=== PATIENT | female | born 1965 | race American Indian/Alaskan Native ===

== ENCOUNTER 2018-01-13 06:27 | Day surgery (SDC) | payer OTHER ==
[~2018-01-13 06:27] MED LIST: ANCEF/STERILE WATER 2 GM/20 ML IV NR
[2018-01-13] MEDS ORDERED: XYLOCAINE 1% 20 mL ONE (06:41)
[2018-01-13] MEDS ORDERED: ADRENALIN IV ONE ×2 (06:41→07:58)
[2018-01-13] MEDS ORDERED: MARCAINE 0.25% INFILTRATI ONE ×2 (06:41→07:50)
--- NOTE | 2018-01-13 07:02 | Anesthesia Day of Surgery ---
Anesthesia Day of Surgery - Day of Surgery Patient Examined: Yes Patient H&P Reviewed: Yes Patient is NPO: Yes
--- NOTE | 2018-01-13 07:03 | Anesthesia Consultation ---
Anesthesia Consult and Med Hx Date of service: 01/13/18 - Airway Anesthetic Teeth Evaluation: Good ROM Head & Neck: Adequate Mental/Hyoid Distance: Adequate Mallampati Class: Class III Intubation Access Assessment: Possibly Difficult - Pulmonary Exam CTA: Yes - Cardiac Exam Cardiac Exam: RRR - Pre-Operative Health Status ASA Pre-Surgery Classification: ASA2 Proposed Anesthetic Plan: General - Pulmonary Hx Smoking: No Hx Sleep Apnea: No (ANGIE PRE SCREEN LOW RISK.) - Cardiovascular System Hx Hypertension: No - Central Nervous System Hx Back Pain: Yes - Endocrine Hx Hypothyroidism: Yes (ON DAILY MEDS) - Other Systems Hx Cancer: No
[2018-01-13] MEDS ORDERED: XYLOCAINE MPF 2% ONE (07:29)
[2018-01-13] MEDS ORDERED: DIPRIVAN 10 MG/ML IV ONE (07:29)
[2018-01-13] MEDS ORDERED: SUBLIMAZE ONE (07:29)
[2018-01-13] MEDS ORDERED: XYLOCAINE 1% 20 mL INFILTRATI ONE (07:50)
[2018-01-13] MEDS ORDERED: QUELICIN ONE ×2 (07:50→08:30)
[2018-01-13] MEDS ORDERED: VERSED IV NR (08:00)
[2018-01-13] MEDS ORDERED: LACTATED RINGERS 1,000 ML IV SCH (08:00)
[2018-01-13] MEDS ORDERED: ZOFRAN ONE (08:25)
[2018-01-13] MEDS ORDERED: DECADRON ONE (08:25)
--- NOTE | 2018-01-13 08:43 | Short Stay Summary ---
Short Stay Documentation Date of service: 01/13/18 - History H&P: obtained from office - Allergies and Medications Current Medications: Allergies No Known Allergies Allergy (Verified 01/02/18 09:44) Home Medications Medication Instructions Recorded Confirmed Last Taken Type Levothyroxine [Synthroid] 100 mcg PO QAM 01/02/18 01/13/18 01/13/18 05:00 History Active Medications Cefazolin Sodium (Ancef/Sterile Water 2 Gm/20 Ml) 2 gm IV PREOP NR Stop: 01/13/18 21:00 Lactated Ringer's (Lactated Ringers) 1,000 mls @ 100 mls/hr IV DIRECT FELI Last Admin: 01/13/18 07:24 Dose: 100 mls/hr Midazolam HCl (Versed) 2 mg IV PREOP NR Stop: 01/13/18 23:59 Last Admin: 01/13/18 07:26 Dose: 2 mg - Brief post op/procedure progress note Date of procedure: 01/13/18 Pre-op diagnosis: persistent right knee pain lateral meniscus tear Post-op diagnosis: other (persistent right knee pain, large complex tear posterior horn medial meniscus) Procedure: right knee arthroscopy partial lateral meniscectomy Findings: as above Surgeon: MYRNA CARVALHO Estimated blood loss: none Pathology: none Condition: stable - Hospital course Hospital course: no perioperative complications - Disposition Condition at discharge: Good Disposition: DC-01 TO HOME OR SELFCARE Short Stay Discharge Plan Follow up with: COLTON GUERRERO [Other] - 7 Days
[2018-01-13] MEDS ORDERED: TORADOL ONE (08:59)
[2018-01-13] MEDS ORDERED: TORADOL IV NR (09:02)
[2018-01-13] MEDS ORDERED: DILAUDID IV PRN (09:03)
[2018-01-13 10:06] VITALS: BP 138/86
--- NOTE | 2018-01-13 15:42 | Post Anesthesia Evaluation ---
- Post Anesthesia Evaluation Patient Participated: Yes Airway Patent: Yes Stable Respiratory Function: Yes Nausea/Vomiting: No Temp > 96.8F: Yes Pain Manageable: Yes Adequeate Hydration: Yes Anesthesia Complications: No
--- NOTE | 2018-01-15 00:01 | Operative Report ---
PREOPERATIVE DIAGNOSIS: Persistent right knee pain with mechanical symptoms, lateral meniscus tear. POSTOPERATIVE DIAGNOSIS: Persistent right knee pain, large complex tear located within the posterior horn of the lateral meniscus, grade 3 articular cartilage loss of an area measuring approximately 8 x 8 mm in circumference in the weightbearing portion of the lateral femoral condyle, grade 3/4 articular cartilage loss in the central aspect of the trochlea, grade 1 articular cartilage loss of the central aspect of the patella. OPERATIVE PROCEDURES: Right knee arthroscopy, partial lateral meniscectomy. SURGEON: Gen Ojeda M.D. BRAKE PRESS OPERATOR: None. ANESTHESIA: General. PREOPERATIVE ANTIBIOTICS: Ancef 2 grams IV within 1 hour of skin incision. DVT prophylaxis, open toe thigh high compression stockings and SCD pumps to the nonoperative left lower extremity. OPERATIVE COMPLICATIONS: None. OPERATIVE HISTORY AND PHYSICAL: This is a 52-year-old female who has had persistent progressive worsening right knee pain with mechanical symptoms. The pain has failed to improve despite extensive nonoperative treatment and is markedly limiting her day-to-day activities. MRI scan was performed, which was positive for a large complex tear located in the posterior horn of the lateral meniscus. The patient's MRI findings and diagnosis were discussed at length to make sure the patient understood the diagnosis. All questions answered. We discussed treatment alternatives of surgical and nonsurgical including risks and benefits of both. After a long lengthy discussion, the patient opted to proceed with operative intervention. This will entail a right knee arthroscopy, partial lateral meniscectomy and surgery as indicated. The risks of which were discussed to include but not exclusive of infection, blood loss, nerve damage, loss of range of motion, persistent pain. Again, the patient understood all of her questions were answered. She wished to proceed with operative intervention for operative procedure. The patient was seen in the preoperative holding area, at which point informed consent was reviewed and appropriate right lower extremity was identified and then marked. The patient was then brought back to the operating room and placed supine on a standard operating room table, at which point general anesthesia was administered and the LMA tube was inserted. After confirmation of adequate general anesthesia and checking appropriate placement of LMA tube, we then made sure all bony prominences were well padded and that there were no wrinkles in the compression stocking to the left lower extremity. An SCD pump was applied to the left lower extremity. The right lower extremity was then examined under anesthesia. The patient was seen to have full range of motion. There was no evidence of instability with a negative Tamie, negative anterior drawer, negative posterior drawer. No varus or valgus instability at 0 as well as 30 degrees of flexion. No recurvatum or excessive external rotation compared to the opposite extremity. Following this, the right lower extremity was then prepped and draped in the usual sterile fashion. After prepping and draping, a timeout was called and appropriate right lower extremity was identified which again had been marked as properly limb A. Began procedure by first infiltrating the knee with 30 mL of 0.25% Marcaine without epinephrine and 30 mL of 1% lidocaine without epinephrine which the patient tolerated well without complication. We then began the procedure by first making standard anterolateral portal with a 15 blade. Once the portal was established, a cannula with the blunt trocar was inserted into the intra-articular aspect of the knee joint. At this point without difficulty or damage to articular cartilage. Once then placed, the arthroscopic camera immediately placed in the medial compartment. We established anteromedial portal by first inserting 18 inch spinal needle under direct arthroscopic visualization. Once confirmed to be superior to the medial meniscus, a 15 blade was then used to establish an anteromedial portal. Once the portal was established, blunt trocar was inserted to widen the portal site followed by an arthroscopic probe. We began diagnostic arthroscopy in the medial compartment with the patient have normal articular cartilage of the medial femoral condyle and medial tibial plateau. There were no tears in the anterior or posterior horn of the medial meniscus and it was seen to be stable when probed. Inspection of the notch showed the ACL and PCL to be intact and stable when probed. The patient's lateral compartment showed to be a large complex tear located within the posterior horn of the lateral meniscus. This was irreparable. We performed a partial lateral meniscectomy in standard fashion using a series of basket punches 4.0 meniscal shaver getting down to a nice, smooth, stable healthy remaining border, along removing the white-white, was a portion of the white-red zone. There were no tears in the anterior horn of the lateral meniscus. There was grade 3 articular cartilage loss in the weightbearing portion of the lateral femoral condyle measuring approximately 8 mm in circumference. Inspection of medial and lateral gutters showed to be free and clear of all loose bodies. Inspection of patellofemoral joint showed to be grade 4 articular cartilage loss in the central aspect of the trochlea. There was also grade 1 articular cartilage loss of the central aspect of the patella. There were no loose bodies in suprapatellar pouch. The arthroscopic camera was then placed in the posterior aspect of the knee adjacent to the cruciate ligament. Once in the posterior aspect of the knee, it was felt there are no loose bodies present. There are no root tears of the meniscus. The arthroscopic camera was removed from the posterior aspect of the knee. The arthroscopic pump was turned off to make sure there was good hemostasis and once this was confirmed, the extraneous fluid was suctioned from the knee using arthroscopic cannula. Following this, all the arthroscopic instrumentation was removed. The 2 portals were then closed with 3-0 nylon in simple fashion. Adaptic, 4 x 4s, ABD, cast padding and Franc wrap was applied. The patient was then awakened from general anesthesia without complication, taken to the recovery room in stable condition. Standard postop orders were written. JOB# [id number] SOFIA/PAUL
== END 2018-01-13 10:22 | disposition home or self-care (01) ==
LOC: OR 06:27
PROVIDERS: ATTEND Orthopaedic Surgery
DX: S83.271A Complex tear of lateral meniscus, current injury, right knee, initial encounter (principal); E03.9 Hypothyroidism, unspecified; X58.XXXA Exposure to other specified factors, initial encounter; Y93.89 Activity, other specified; Y92.89 Other specified places as the place of occurrence of the external cause; Y99.8 Other external cause status
CPT/HCPCS: 29881; 81025; 97116; 97161; J0171; J0330; J0690; J1100; J1170; J1885; J2250; J2405; J2704; J3010; J7120